=== PATIENT | female | born 1990 | race Two or more races ===

== ENCOUNTER 2017-08-16 19:27 | Emergency (ER) | payer SELFPAY ==
[2017-08-16] MEDS ORDERED: DIAZEPAM 5 MG TABLET PO ONE (21:29)
--- NOTE | 2017-08-16 21:32 | ER Document Report ---
ED General - General Chief Complaint: Anxiety Stated Complaint: POSSIBLE PANIC ATTACK Time Seen by Provider: 08/16/17 20:45 Notes: Patient is a 27-year-old female with a past medical history of chronic anxiety, depression and panic attacks who presents having an acute panic attack. Patient states that her symptoms have been ongoing most of the day and have not abated. She reports a history of similar panic attacks in the past but none of which have lasted this long. Nothing seems to improve her symptoms and she states that it was triggered by multiple stressors in her life. Patient used to be on Zoloft but self discontinued this medication approximately 6-8 months ago as she felt she no longer needed the medication as she was doing so well. However she did restart this medication 3 days ago due to concerns about increasing daily anxiety and depression. She denies any suicidal or homicidal ideation. She has not seen her general doctor regarding today's concerns. She denies any acute physical concerns. TRAVEL OUTSIDE OF THE [place] IN LAST 30 DAYS: No - Related Data Allergies/Adverse Reactions: No Known Allergies Allergy (Unverified 08/16/17 19:28) Past Medical History - General Information source: Patient - Social History Smoking Status: Never Smoker Frequency of alcohol use: None Drug Abuse: None Lives with: Spouse/Significant other Family History: Reviewed & Not Pertinent Patient has suicidal ideation: No Patient has homicidal ideation: No Renal/ Medical History: Denies: Hx Peritoneal Dialysis Review of Systems - Review of Systems Notes: Constitutional: Negative for fever. HENT: Negative for sore throat. Eyes: Negative for visual changes. Cardiovascular: Negative for chest pain. Respiratory: Negative for shortness of breath. Gastrointestinal: Negative for abdominal pain, vomiting or diarrhea. Genitourinary: Negative for dysuria. Musculoskeletal: Negative for back pain. Skin: Negative for rash. Neurological: Negative for headaches, weakness or numbness. 10 point ROS negative except as marked above and in HPI. Physical Exam - Vital signs Vitals: Temp Pulse Resp BP Pulse Ox 98.0 F 84 14 145/97 H 97 08/16/17 19:56 08/16/17 19:56 08/16/17 19:56 08/16/17 19:56 08/16/17 19:56 Interpretation: Normal Notes: PHYSICAL EXAMINATION: GENERAL: Well-appearing, well-nourished and in no acute distress. HEAD: Atraumatic, normocephalic. EYES: Pupils equal round and reactive to light, extraocular movements intact, sclera anicteric, conjunctiva are normal. ENT: nares patent, oropharynx clear without exudates. Moist mucous membranes. NECK: Normal range of motion, supple without lymphadenopathy LUNGS: Breath sounds clear to auscultation bilaterally and equal. No wheezes rales or rhonchi. HEART: Regular rate and rhythm without murmurs ABDOMEN: Soft, nontender, normoactive bowel sounds. No guarding, no rebound. No masses appreciated. EXTREMITIES: Normal range of motion, no pitting or edema. No cyanosis. NEUROLOGICAL: No focal neurological deficits. Moves all extremities spontaneously and on command. PSYCH: Appears highly anxious, tremulous SKIN: Warm, Dry, normal turgor, no rashes or lesions noted. Course - Re-evaluation Re-evalutation: 08/16/17 21:30 Patient presents with history most consistent with an acute panic attack. The patient admits that these are symptoms identical to prior occasions of panic. There was a clear trigger for tonight's episode. Symptoms did resolve after receiving medical therapy here in the emergency department. Vitals otherwise within normal limits. I do not suspect an acute pulmonary embolus, ACS, pneumothorax, or any other acute left threatening pathology based on history and exam. I do not believe any labs or imaging are indicated at this time. At this time will discharge with return precautions and follow-up recommendations. Verbal discharge instructions given a the bedside and opportunity for questions given. Medication warnings reviewed. Patient is in agreement with this plan and has verbalized understanding of return precautions and the need for primary care follow-up in the next 24-72 hours. - Vital Signs Vital signs: Temp Pulse Resp BP Pulse Ox 98.4 F 88 20 149/100 H 98 08/16/17 21:45 08/16/17 21:45 08/16/17 21:45 08/16/17 21:45 08/16/17 21:45 Discharge - Discharge Clinical Impression: Panic attack, Chronic anxiety Condition: Good Disposition: HOME, SELF-CARE Instructions: Anxiety ([facility]) Additional Instructions: You were seen today for a panic attack. Please continue to take the Zoloft that has been prescribed to by her outpatient doctor as this is the best kind of medication to prevent recurrence of daily panic and anxiety. You have been prescribed hydroxyzine which you can use if you begin to develop an additional panic attack in the future. Please return if you develop recurrence of your symptoms, thoughts of wanting to harm yourself, or any other symptoms that are concerning to you. Follow-up with your primary doctor or mental health provider regarding today's ED visit. Prescriptions: Hydroxyzine HCl 50 mg PO BID PRN #30 tablet PRN Reason:
[2017-08-16 21:51] VITALS: BP 149/100
== END 2017-08-16 21:46 | disposition home or self-care (01) ==
LOC: ER 19:27
DX: F41.0 Panic disorder [episodic paroxysmal anxiety] (principal)
CPT/HCPCS: 99283